=== PATIENT | male | born 1985 | race Two or more races ===

== ENCOUNTER 2019-01-15 04:31 | Emergency (ER) | payer BC ==
[2019-01-15 05:02] VITALS: BMI 29.0
--- NOTE | 2019-01-15 05:11 | PDOC ---
History of Present Illness - General Chief Complaint: Nausea/Vomiting Stated Complaint: ABD PAIN Time Seen by Provider: 01/15/19 05:11 - History of Present Illness Initial Comments: 01/15/19 05:11 33 year old man without significant history who presents with diffuse abdominal pain and crampign that started at 0200 today and associated with 3x nbnb vomiting. The patient ate some fried bread and potato that his family also ate, however he was the only that has had these symptoms. Past History - Past Medical History Allergies/Adverse Reactions: Allergies Allergy/AdvReac Type Severity Reaction Status Date / Time No Known Allergies Allergy Verified 01/15/19 05:39 Home Medications: Ambulatory Orders Ondansetron [Zofran -] 8 mg PO PRN PRN #8 tablet 01/15/19 COPD: No - Suicide/Smoking/Psychosocial Hx Smoking History: Never smoked Hx Alcohol Use: Yes (SOCIAL) Drug/Substance Use Hx: No Review of Systems - Review of Systems Able to Perform ROS?: Yes Is the patient limited Turkish proficient: No Constitutional: No: Chills, Diaphoresis, Fever HEENTM: No: Blurred Vision, Tinnitus Respiratory: No: Cough, Orthopnea, Shortness of Breath ABD/GI: Yes: Nausea, Vomiting. No: Constipated, Diarrhea : No: Burning, Dysuria, Frequency Musculoskeletal: No: Back Pain, Muscle Pain Neurological: No: Headache, Numbness, Seizure *Physical Exam - Vital Signs Last Vital Signs Temp Pulse Resp BP Pulse Ox 97.4 F L 72 18 133/89 100 01/15/19 04:51 01/15/19 04:51 01/15/19 04:51 01/15/19 04:51 01/15/19 04:51 - Physical Exam Comments: 01/15/19 05:17 GENERAL: Awake, alert, and fully oriented, in no acute distress HEAD: No signs of trauma, normocephalic, atraumatic EYES: EOMI, sclera anicteric, conjunctiva clear ENT: oropharynx clear without exudates. Moist mucosa NECK: Normal ROM, supple LUNGS: No distress, speaks full sentences, clear to auscultation bilaterally HEART: Regular rate and rhythm, normal S1 and S2, no murmurs, rubs or gallops, peripheral pulses normal and equal bilaterally. ABDOMEN: Soft, nontender, normoactive bowel sounds. No guarding, no rebound. No masses EXTREMITIES : Normal inspection, Normal range of motion, no edema. No clubbing or cyanosis. NEUROLOGICAL: Cranial nerves II through XII grossly intact. Normal speech, no focal sensorimotor deficits SKIN: Warm, Dry, normal turgor, no rashes or lesions noted ED Treatment Course - LABORATORY CBC & Chemistry Diagram: 01/15/19 05:20 01/15/19 05:20 Medical Decision Making - Medical Decision Making 01/15/19 05:19 33 year old man without significant history who presents with diffuse abdominal pain and crampign that started at 0200 today and associated with 3x nbnb vomiting. The patient ate some fried bread and potato that his family also ate, however he was the only that has had these symptoms. ED Course: r/o acs viral vs pancreatisi vs gerd vs gastroenteritis cbc, cmp, lipase, cxr, ekg patient signed out to resident Dr. Mosley *DC/Admit/Observation/Transfer Diagnosis at time of Disposition: Gastroenteritis - Discharge Dispostion Disposition: HOME Condition at time of disposition: Stable - Prescriptions Prescriptions: Ondansetron [Zofran -] 8 mg PO PRN PRN #8 tablet PRN Reason: Nausea And/Or Vomiting - Referrals - Patient Instructions Printed Discharge Instructions: DI for Viral Gastroenteritis -- Adult Additional Instructions: You were evaluated in the ED for nausea, vomiting and stomach pain. It's likely due to gastroenteritis (stomach flu). You received fluids, pain medication as well as pepcid. Please have plenty of bowel rest before moving onto liquid diet. You may advance diet once you tolerate liquid diet. Return to the ED if you experience worsening stomach pain, fever, chills. Anti-nausea/vomiting medication has been sent to your pharmacy (zofran 8mg PRN) Take it as needed. - Post Discharge Activity Forms/Work/School Notes: Back to Work
[2019-01-15] MEDS ORDERED: FAMOTIDINE 20 MG/50 ML IVPB 20 MG/50 ML MG IVPB ONE (05:12)
[2019-01-15] MEDS ORDERED: ONDANSETRON 4 MG/2 ML VIAL IVPUSH ONE (05:13)
[2019-01-15] MEDS ORDERED: SODIUM CHLORIDE 1,000 ML IV SCH (05:15)
[2019-01-15 06:16] LABS: BASO % 0.3 % (0-2.0); EOS % 0.4 % (0-4.5); HEMATOCRIT 43.8 % (35.4-49); HEMOGLOBIN 14.6 GM/dL (11.7-16.9); MCH 26.1 pg (25.7-33.7); MCHC 33.3 g/dl (32.0-35.9); MEAN CELL VOLUME 78.4 fl (80-96); MEAN PLT VOLUME 7.4 fl (7.5-11.1); NEUT % 81.3 % (42.8-82.8); PLATELET COUNT 303 K/MM3 (134-434); RBC 5.59 M/mm3 (4.00-5.60); WHITE BLOOD COUNT 15.7 K/mm3 (4.0-10.0)
[2019-01-15 06:40] LABS: ALBUMIN 4.3 g/dl (3.4-5.0); ALK PHOS 78 U/L (45-117); ANION GAP 9 MMOL/L (8-16); BILIRUBIN,TOTAL 0.6 mg/dL (0.2-1); BLOOD UREA NITROGEN 16 mg/dL (7-18); CHLORIDE 101 mmol/L (98-107); CO2 28 mmol/L (21-32); CREATININE 0.9 mg/dL (0.55-1.3); GLUCOSE,RANDOM 154 mg/dL (74-106); LIPASE 111 U/L (73-393); POTASSIUM 3.8 mmol/L (3.5-5.1); SGOT/AST 21 U/L (15-37); SGPT/ALT 36 U/L (13-61); SODIUM 138 mmol/L (136-145); TOT PROT 7.8 g/dl (6.4-8.2)
--- NOTE | 2019-01-15 06:41 | PDOC ---
Attending Attestation - Resident Resident Name: Kayla Mckay - ED Attending Attestation I have performed the following: I have examined & evaluated the patient, The case was reviewed & discussed with the resident, I agree w/resident's findings & plan - HPI HPI: 01/15/19 06:34 Pt comes with 10 episodes of diarrhea and 3 episodes of vomiting. He had eated a bread stuffed with potatoes. Pt's and mother in law ate the same but didn't get ill. Pt works at a [employer] [place], and he was there today. He has a 2nd job at a [employer], didnt work today. Pt has no PMHx. He appears weak. Afebrile, but cheeks are flushed. - Physicial Exam PE: 01/15/19 06:36 Agree with resident exam. Afebrile. Abd soft NT ND lungs clear. Heart normal rate and rhythm. Pt has no flank pain and no dysuria. - Medical Decision Making 01/15/19 06:37 Labs pending. Pt will be hydrated and reevaluated. 01/15/19 06:53 WBC is elevated, left shift 80% Pt will be signed out to the day team. He may be discharged once he is improved.
[2019-01-15] MEDS ORDERED: SODIUM CHLORIDE 1,000 ML IV STA (07:17)
[2019-01-15] MEDS ORDERED: ACETAMINOPHEN 1000 MG/100 ML VIAL (NON FORMULARY) IVPB ONE (07:31)
[2019-01-15] MEDS ORDERED: ACETAMINOPHEN INJECTION 100 ML IVPB ONE (07:38)
--- NOTE | 2019-01-15 08:36 | PDOC ---
*Physical Exam - Vital Signs Last Vital Signs Temp Pulse Resp BP Pulse Ox 97.4 F L 72 18 133/89 100 01/15/19 04:51 01/15/19 04:51 01/15/19 04:51 01/15/19 04:51 01/15/19 04:51 - Physical Exam Comments: 01/15/19 08:34 Patient received 1g of tylenol IV and another bag of NS. He reported feeling much better and would like to go home. Devan dc the patient with zofran PRN and encourage him to give plenty of bowel rest before moving onto liquid diet. Advance diet as needed after he tolerates liquid diet. <Bud Mosley - Last Filed: 01/15/19 08:36> - Vital Signs Last Vital Signs Temp Pulse Resp BP Pulse Ox 98.6 F 89 19 123/82 100 01/15/19 08:50 01/15/19 08:49 01/15/19 08:49 01/15/19 08:49 01/15/19 08:49 <Caroline Georges - Last Filed: 01/16/19 07:28> ED Treatment Course - LABORATORY CBC & Chemistry Diagram: 01/15/19 05:20 01/15/19 05:20 - ADDITIONAL ORDERS Additional order review: Laboratory Results 01/15/19 05:20 Sodium 138 Potassium 3.8 Chloride 101 Carbon Dioxide 28 Anion Gap 9 BUN 16 Creatinine 0.9 Creat Clearance w eGFR 96.03 Random Glucose 154 H Calcium 9.0 Total Bilirubin 0.6 AST 21 ALT 36 Alkaline Phosphatase 78 Total Protein 7.8 Albumin 4.3 Lipase 111 01/15/19 05:20 RBC 5.59 MCV 78.4 L MCHC 33.3 RDW 14.0 MPV 7.4 L Neutrophils % 81.3 Lymphocytes % 13.0 Monocytes % 5.0 Eosinophils % 0.4 Basophils % 0.3 - Medications Given in the ED: ED Medications Discontinued Medications Generic Name Dose Route Start Last Admin Trade Name Freq PRN Reason Stop Dose Admin Acetaminophen 1,000 mg 01/15/19 07:31 01/15/19 07:42 Ofirmev Injection - IVPB 01/15/19 07:32 1,000 mg ONCE ONE Administration Famotidine/Sodium Chloride 20 mg in 50 mls @ 100 mls/hr 01/15/19 05:12 05:37 Pepcid 20 Mg Premixed Ivpb - IVPB 01/15/19 05:41 100 mls/hr ONCE ONE Administration Sodium Chloride 1,000 mls @ 1,000 mls/hr 01/15/19 07:17 01/15/19 07:42 Normal Saline - IV 01/15/19 08:16 1,000 mls/hr ASDIR STA Administration Ondansetron HCl 4 mg 01/15/19 05:13 01/15/19 05:37 Zofran Injection IVPUSH 01/15/19 05:14 4 mg ONCE ONE Administration <Bud Mosley - Last Filed: 01/15/19 08:36> - LABORATORY CBC & Chemistry Diagram: 01/15/19 05:20 01/15/19 05:20 - ADDITIONAL ORDERS Additional order review: 01/15/19 05:20 RBC 5.59 MCV 78.4 L MCHC 33.3 RDW 14.0 MPV 7.4 L Neutrophils % 81.3 Lymphocytes % 13.0 Monocytes % 5.0 Eosinophils % 0.4 Basophils % 0.3 - Medications Given in the ED: ED Medications Discontinued Medications Generic Name Dose Route Start Last Admin Trade Name Freq PRN Reason Stop Dose Admin Acetaminophen 1,000 mg 01/15/19 07:31 01/15/19 07:42 Ofirmev Injection - IVPB 01/15/19 07:32 1,000 mg ONCE ONE Administration Famotidine/Sodium Chloride 20 mg in 50 mls @ 100 mls/hr 01/15/19 05:12 05:37 Pepcid 20 Mg Premixed Ivpb - IVPB 01/15/19 05:41 100 mls/hr ONCE ONE Administration Sodium Chloride 1,000 mls @ 42 mls/hr 01/15/19 05:15 01/15/19 05:37 Normal Saline - IV 42 mls/hr ASDIR MATTI Administration Sodium Chloride 1,000 mls @ 1,000 mls/hr 01/15/19 07:17 01/15/19 07:42 Normal Saline - IV 01/15/19 08:16 1,000 mls/hr ASDIR STA Administration Ondansetron HCl 4 mg 01/15/19 05:13 01/15/19 05:37 Zofran Injection IVPUSH 01/15/19 05:14 4 mg ONCE ONE Administration <Caroline Georges Gloshamika - Last Filed: 01/16/19 07:28> Medical Decision Making - Medical Decision Making 01/16/19 07:26 pt was signed out from Dr Calixto at 7AM reviewed HPI, labs and workup. 33 YOM c/o n/v/d, on reassessment, mild epigastric discomfort. labs with leukocytosis of 15K, nonspecific, likely in the setting of AGE. abdomen nonperitonoeal, he is nontoxic appearing given pepcid and fluids initially, improving. adding on tylenol for analgesia on reassessment, VS wnl, no fever or hypotension or tachycardia well appearing. travis PO intake rx zofran for nausea supportive care, bland diet, adv as tolerated pcp followup, return precautions <GeorgesCaroline Downing - Last Filed: 01/16/19 07:28> *DC/Admit/Observation/Transfer - Discharge Dispostion Decision to Admit order: No <Bud Mosley - Last Filed: 01/15/19 08:36> <DestiniCaroline Downing - Last Filed: 01/16/19 07:28> Diagnosis at time of Disposition: Gastroenteritis - Discharge Dispostion Disposition: HOME Condition at time of disposition: Stable - Prescriptions Prescriptions: Ondansetron [Zofran -] 8 mg PO PRN PRN #8 tablet PRN Reason: Nausea And/Or Vomiting - Patient Instructions Printed Discharge Instructions: DI for Viral Gastroenteritis -- Adult Additional Instructions: You were evaluated in the ED for nausea, vomiting and stomach pain. It's likely due to gastroenteritis (stomach flu). You received fluids, pain medication as well as pepcid. Please have plenty of bowel rest before moving onto liquid diet. You may advance diet once you tolerate liquid diet. Return to the ED if you experience worsening stomach pain, fever, chills. Anti-nausea/vomiting medication has been sent to your pharmacy (zofran 8mg PRN) Take it as needed. - Post Discharge Activity Forms/Work/School Notes: Back to Work
[2019-01-15 08:50] VITALS: BP 123/82; PULSE 89
[2019-01-15 08:51] VITALS: TEMP 98.6
--- NOTE | 2019-01-15 11:30 | EKG ---
Test Reason : Blood Pressure : / mmHG Vent. Rate : 074 BPM Atrial Rate : 074 BPM P-R Int : 162 ms QRS Dur : 090 ms QT Int : 390 ms P-R-T Axes : 046 027 006 degrees QTc Int : 432 ms NORMAL SINUS RHYTHM NORMAL ECG NO PREVIOUS ECGS AVAILABLE Confirmed by ASH CAMPOVERDE MD ([id number]) on 01/15/2019 11:29:54 AM Referred By: Confirmed By:ASH CAMPOVERDE MD
== END 2019-01-15 08:55 | disposition home or self-care (01) ==
LOC: JER 04:31
PROC: 3E0337Z Introduction of Electrolytic and Water Balance Substance into Peripheral Vein, Percutaneous Approach (ICD-10-PCS; principal; 2019-01-15)
PROC: 3E033GC Introduction of Other Therapeutic Substance into Peripheral Vein, Percutaneous Approach (ICD-10-PCS; 2019-01-15)
PROC: 3E033NZ Introduction of Analgesics, Hypnotics, Sedatives into Peripheral Vein, Percutaneous Approach (ICD-10-PCS; 2019-01-15)
PROC: 3E033GC Introduction of Other Therapeutic Substance into Peripheral Vein, Percutaneous Approach (ICD-10-PCS; 2019-01-15)
DX: K52.9 Noninfective gastroenteritis and colitis, unspecified (principal)
CPT/HCPCS: 36415; 71046-TC-FY; 80053; 83690; 85025; 93005; 93010; 99283-25; J0131; J7030

== ENCOUNTER 2022-10-08 16:12 | Emergency (ER) | payer OTHER ==
[2022-10-08 16:24] VITALS: RESP 18; BMI 28.7
[2022-10-08] MEDS ORDERED: SODIUM CHLORIDE 1,000 ML IV STA (16:50)
[2022-10-08] MEDS ORDERED: ACETAMINOPHEN 1000 MG/100 ML BAG IVPB ONE (16:50)
[2022-10-08 17:34] LABS: HEMOGLOBIN 15.6 G/dL (11.7-16.9); MCH 26.9 pg (25.7-33.7); MCHC 33.9 g/dl (32.0-35.9); MEAN CELL VOLUME 79.4 fl (80-96); MEAN PLT VOLUME 7.5 fl (7.5-11.1); RBC 5.79 10^6/uL (4.00-5.60); RDW 15.3 % (11.9-15.9); WHITE BLOOD COUNT 21.7 10^3/uL (4.0-10.8)
[2022-10-08] MEDS ORDERED: ACETAMINOPHEN INJECTION 100 ML IVPB ONE (17:47)
[2022-10-08 17:49] LABS: ALBUMIN 3.7 g/dl (3.4-5.0); BILIRUBIN,TOTAL 2.8 mg/dl (0.2-1); CALCIUM 8.6 mg/dl (8.5-10); MAGNESIUM 2.1 mg/dL (1.8-2.4); TOT PROT 7.4 g/dl (6.4-8.2)
[2022-10-08] MEDS ORDERED: PIPERACILLIN/TAZOB 4.5 GM 4.5 GM in DEXTROSE 5%-WATER 100 ML IVPB ONE (17:52)
[2022-10-08] MEDS ORDERED: PIPERACILLIN/TAZOBACTAM 4.5 GM VIAL IVPB ONE (17:55)
[2022-10-08 17:59] LABS: PLATELET ESTIMATE ADEQUATE
[2022-10-08] MEDS ORDERED: SODIUM CHLORIDE 0.9% 500 ML INFUS.BAG IV ONE (19:06)
[2022-10-08 19:59] VITALS: BP 118/84; PULSE 112; TEMP 99.4
== END 2022-10-08 23:34 | disposition short-term general hospital (02) ==
LOC: FER 16:12
PROC: 3E0333Z Introduction of Anti-inflammatory into Peripheral Vein, Percutaneous Approach (ICD-10-PCS; principal; 2022-10-08)
PROC: 3E03329 Introduction of Other Anti-infective into Peripheral Vein, Percutaneous Approach (ICD-10-PCS; 2022-10-08)
PROC: 3E0337Z Introduction of Electrolytic and Water Balance Substance into Peripheral Vein, Percutaneous Approach (ICD-10-PCS; 2022-10-08)
DX: K83.09 Other cholangitis (principal)
CPT/HCPCS: 0241U-QW; 36415; 76705-TC; 80053; 81003; 81015; 83605; 83690; 83735; 85027; 86850; 86900; 86901; 87040; 87086; 93005; 99285-25